=== PATIENT | female | born 1990 | race Caucasian/White ===

== ENCOUNTER 2022-09-24 13:43 | Emergency (ER) | payer OTHER, SELFPAY ==
[2022-09-24 13:49] VITALS: BP 110/70; PULSE 85; RESP 16; TEMP 36.7; O2SAT 100; BMI 20.5
--- NOTE | 2022-09-24 14:27 | ED_ITS ---
HPI - General Adult General Chief complaint: Abdominal Pain Stated complaint: 10w Preg Abdominal Pain Time Seen by Provider: 09/24/22 13:45 History of Present Illness HPI narrative: This 31-year-old female comes in reporting that she is 10 weeks . She had some bright red vaginal bleeding last night but no cramping. It was a 1 time episode with no ongoing bleeding. She does have some abdominal cramping today but again no bleeding. This is her 2nd . She has a 2-year-old girl at home. Everything has been going nicely during this as was the case with the previous 1. Related Data Home Medications Medication Instructions Recorded Confirmed No Known Home Medications 09/24/22 09/24/22 Allergies Allergy/AdvReac Type Severity Reaction Status Date / Time Sulfa (Sulfonamide Allergy Hives Verified 09/24/22 13:56 Antibiotics) Review of Systems Status of ROS: Reports: 10 or more systems reviewed and unremarkable except as noted in History and below Narrative: Constitutional: No fevers, no weight gain or loss. Eyes: No discharge. No vision changes. HENT: No congestion, no sore throat, no ear pain. Cardiovascular: No chest pain, no palpitations. Respiratory: No shortness of breath, no wheezes, no cough. Gastrointestinal: No vomiting, no diarrhea. Some abdominal cramping today. Genitourinary: No dysuria, no hematuria. Blood per vagina episode last night as described above. Musculoskeletal: Normal range of motion. Skin: No rashes, no pruritis. Neurological: No dizziness, weakness, sensory change, speech change. Endo/Heme/Allergies: No bruising or bleeding. No polydipsia. Pysch: no suicidality, no anxiety, no insomnia. All other systems reviewed and are negative. PFSH PFS Social History Smoking Status: Never smoker Do you use any of these nicotine containing products: None Second hand tobacco smoke exposure: No How often do you have a drink containing alcohol: never How often do you have six or more drinks on one occasion: Never AUDIT-C Alcohol total score: 0 Non-prescribed substance use: denies use service: No Exam Narrative: Exam Narrative: Constitutional: Well-developed, well-nourished, no acute distress. HEENT: Normocephalic, atraumatic. Neck: Normal range of motion. Nontender. Supple. Heart: Regular. No murmurs. Normal rate. Intact distal pulses. Lungs: Clear to auscultation. No chest discomfort. No wheezes, rhonchi, or rales. Abdomen: Normal bowel sounds. Nontender. No rebound tenderness. Genitalia: Deferred. Back: No midline tenderness. Normal range of motion. Extremities: Normal range of motion. No injury. Skin: Intact. No rash. Warm. No erythema or pallor. Neurologic: No altered sensation. No weakness. Alert and oriented. Psychiatric: No suicidality. No anxiety or depression. No insomnia. Nursing notes and vitals signs are reviewed. Const: Vital Signs, click to edit/add: Vital Signs - 24 hr 09/24/22 13:49 Temperature 98.1 F Pulse Rate [Pulse Oximeter] 85 Respiratory Rate 16 Blood Pressure [Le ft Upper Arm] 110/70 Pulse Oximetry 100 Oxygen Delivery Me thod Room Air Course Vital Signs Vital signs: Initial Vital Signs Temperature 98.1 F 09/24/22 13:49 Temperature Source Temporal Artery Scan 09/24/22 13:49 Pulse Rate 85 09/24/22 13:49 Pulse Rhythm 09/24/22 13:49 Pulse Strength 3+ Normal 09/24/22 13:49 Respiratory Rate 16 09/24/22 13:49 Blood Pressure 110/70 09/24/22 13:49 Blood Pressure Mean 83 09/24/22 13:49 Blood Pressure Position Sitting 09/24/22 13:49 Pulse Oximetry 100 09/24/22 13:49 Oxygen Delivery Method 09/24/22 13:49 Vital Signs Temperature 98.1 F 09/24/22 13:49 Pulse Rate 85 09/24/22 13:49 Respiratory Rate 16 09/24/22 13:49 Blood Pressure 110/70 09/24/22 13:49 Pulse Oximetry 100 09/24/22 13:49 Oxygen Delivery Method 09/24/22 13:49 Temperature 98.1 F 09/24/22 13:49 Pulse Rate 85 09/24/22 13:49 Respiratory Rate 16 09/24/22 13:49 Blood Pressure 110/70 09/24/22 13:49 Pulse Oximetry 100 09/24/22 13:49 Oxygen Delivery Method 09/24/22 13:49 Medical Decision Making MDM Narrative Medical decision making narrative: This patient has some cramping today and a single episode of bright red blood per vagina last night. She is 10 weeks . She is obviously concerned that this may be something like a miscarriage. She does have an appointment with OB physician tomorrow. I did use bedside ultrasound and observed a normal intrauterine with normal heart activity. I explained that this could have been a subchorionic hemorrhage that drained. The patient and her are thoroughly reassured with the images they saw on ultrasound. She is okay to be discharged home to continue current plans and follow-up as scheduled. Discharge Plan Discharge Clinical Impression: First trimester Patient Disposition: Home, Self-Care Condition: Stable Additional Instructions: Continue current plans. Follow up with MD tomorrow as scheduled. Return if recurrent or worsening symptoms happen. Prescriptions: No Action No Known Home Medications Follow Up/Referrals: Provider,Not a Local [Primary Care Provider] - Stand Alone Forms: [employer] Info Instructions Procedures Ultrasound Other exam #1: Anatomical areas examined: Intrauterine . Indications: Vaginal bleed last evening. Exam type: focused emergency ultrasound Description/findings: Normal intrauterine . Four-chamber heart is visualized with normal heart rate. Impression: Normal intrauterine .
== END 2022-09-24 14:42 | disposition home or self-care (01) ==
PROVIDERS: Emergency Provider Emergency Medicine Emergency Medical Services
DX: O46.91 Antepartum hemorrhage, unspecified, first trimester (principal); Z3A.10 10 weeks gestation of pregnancy
CPT/HCPCS: 76815; 99283; 99284